=== PATIENT | female | born 1950 | race Caucasian/White ===

== ENCOUNTER 2017-04-05 13:38 | Emergency (ER) | payer MEDICARE, OTHER ==
[~2017-04-05] VITALS: Ht 154.9 cm; Wt 117.2 kg
[~2017-04-05 13:38] MED LIST: ACCUPRIL5 MG; ADVAIR DISK1 INH; ALLOPURINOL100 MG PO; B-122500 MCG PO; C 250 PO; CARAFATE1 GM PO; CARDIZEM30 MG PO; CIPROFLOXACN500 MG PO; CYMBALTA30 MG PO; D3400 UNI1 PO; EC ASPIRIN325 MG PO; EQL ASPIRIN325 MG PO; ERYTHROCIN PO; EYE GTT; FIORICET PO; FLEXERIL5 MG PO; FLONASE NASAL50 MCG; FOLIC ACID1 MG PO; GABAPENTIN100 MG PO; GABAPENTIN300 MG PO; HYZAAR1 TA2 OR; IMDUR30 MG OR; LANOXIN0.125 MG PO; LASIX 20 MG TAB20 MG PO; LASIX20 MG OR; LEVOTHYROXIN100 MCG PO; LEVOTHYROXIN75 MCG PO; LIPITOR20 MG OR; LIPITOR40 MG OR; LIPITOR40 MG PO; LOPRESSOR50 MG PO; LORTAB 10-325 M1 TAB PO; LORTAB 5 OR; LORTAB 5 PO; LORTAB 5/3255 MG PO; LORTAB 7.57.5 MG PO; LORTAB5 PO; METFORMIN500 M2 PO; METO50TA52 OR; METO50TA52 PO; METOCLOPRAM5 MG PO; METRONIDAZOL500 MG PO; NEURONTIN300 MG OR; NEXIUM20 M1 OR; NEXIUM40 M1 PO; NITROLINGUAL SPRAY D MT; PERCOCET 5/325M1 TAB OR; POOR HISTORIAN; PREVACID30 M2 PO; REQUIP0.5 MG PO; REQUIP3 MG PO; SPIRIVA IN; SUCRALFATE1 GM PO; TOPROL XL PO; TOPROL XL100 MG OR; TOPROL XL100 MG PO; TRAMADOL HCL50 MG PO; VENTOLIN HFA IN; VESICARE10 MG OR; VESICARE10 MG PO; XANAX0.25 MG OR; XANAX0.25 MG PO; ZOFRAN ODT4 MG OR; ZPAK OR
[2017-04-05 14:40] VITALS: BP 166/87
== END 2017-04-05 14:38 | disposition home or self-care (01) ==
LOC: ED 13:38
DX: R51 Headache (principal); J44.9 Chronic obstructive pulmonary disease, unspecified; K21.9 Gastro-esophageal reflux disease without esophagitis; I11.0 Hypertensive heart disease with heart failure; I50.9 Heart failure, unspecified; M19.90 Unspecified osteoarthritis, unspecified site; I25.10 Atherosclerotic heart disease of native coronary artery without angina pectoris; E03.9 Hypothyroidism, unspecified; I48.91 Unspecified atrial fibrillation; E11.42 Type 2 diabetes mellitus with diabetic polyneuropathy; E78.5 Hyperlipidemia, unspecified; E66.01 Morbid (severe) obesity due to excess calories; F32.9 Major depressive disorder, single episode, unspecified; Z95.0 Presence of cardiac pacemaker

== ENCOUNTER 2017-10-17 14:35 | Emergency (ER) | payer MEDICARE, OTHER ==
[~2017-10-17] VITALS: Ht 154.9 cm; Wt 113.2 kg
[2017-10-17 15:11] LABS: HEMATOCRIT 37.4 % (37.0-47.0); HEMOGLOBIN 11.1 g/dl (12.0-16.0); IMMATURE GRANULOCYTES 0.3 % (0.0-1.0); MEAN CORPUSCULAR HGB 21.7 pG CALC (26.0-32.0); MEAN CORPUSCULAR HGB CONC 29.7 g/L CALC (32.0-36.0); NEUT# 7.78 thou/uL (2.00-7.15); RED BLOOD COUNT 5.12 mill/uL (4.20-5.60); RED CELL DISTRI WIDTH 17.5 % (11.5-15.5)
[2017-10-17 15:24] LABS: ALBUMIN 4.2 g/dL (3.2-5.0); ALKALINE PHOSPHATASE 91 u/l (38-126); ANION GAP 16 (6-22 (CALC)); BILIRUBIN, TOTAL 0.5 mg/dL (0.0-1.4); BUN 10 mg/dL (8-23); BUN/CREATININE RATIO 11 (12-20 (CALC)); CALCIUM 9.4 mg/dL (8.4-10.2); CARBON DIOXIDE 23 mmol/l (22-30); CHLORIDE 105 mmol/l (95-108); CREATININE 0.9 mg/dL (0.5-1.0); GFR > 60 ML/MIN (>=60 (CALC)); GFR FOR AFR.AMER. > 60 ML/MIN (>=60 (CALC)); GLUCOSE 127 mg/dL (82-115); POTASSIUM 4.3 mmol/l (3.5-5.1); SGOT/AST 29 u/l (9-36); SGPT/ALT 29 u/l (11-66); SODIUM 139 mmol/l (137-146); TOTAL PROTEIN 7.6 g/dL (6.3-8.2)
[2017-10-17 15:26] LABS: PROTHROMBIN TIME 11.3 SECONDS (9.0-12.5)
[2017-10-17 15:35] LABS: MYOGLOBIN 55 ng/mL (0 - 62)
[2017-10-17] MEDS ORDERED: DOXYCYC MONO100 M1 PO (17:24)
[2017-10-17] MEDS ORDERED: ROBITUSSIN AC10 ML PO (17:24)
[2017-10-17 17:44] VITALS: BP 138/78
== END 2017-10-17 17:56 | disposition home or self-care (01) ==
LOC: ED 14:35
PROVIDERS: Emergency Medicine
DX: J44.0 Chronic obstructive pulmonary disease with (acute) lower respiratory infection (principal); J20.9 Acute bronchitis, unspecified; I10 Essential (primary) hypertension; F03.90 Unspecified dementia, unspecified severity, without behavioral disturbance, psychotic disturbance, mood disturbance, and anxiety; E66.01 Morbid (severe) obesity due to excess calories; M10.9 Gout, unspecified; Z95.0 Presence of cardiac pacemaker; R06.02 Shortness of breath

== ENCOUNTER 2017-12-18 19:45 | Emergency (ER) | payer MEDICARE, OTHER ==
[~2017-12-18] VITALS: Ht 154.9 cm; Wt 109.0 kg
[~2017-12-18 19:45] MED LIST changes: +DOXYCYC MONO100 M1 PO; +ROBITUSSIN AC10 ML PO
[2017-12-18 20:15] LABS: HEMATOCRIT 33.6 % (37.0-47.0); HEMOGLOBIN 9.9 g/dl (12.0-16.0); IMMATURE GRANULOCYTES 0.3 % (0.0-1.0); MEAN CELL VOLUME 74.7 fL CALC (80.0-100.0); MEAN CORPUSCULAR HGB CONC 29.5 g/L CALC (32.0-36.0); NEUT# 7.79 thou/uL (2.00-7.15); RED BLOOD COUNT 4.5 mill/uL (4.20-5.60)
[2017-12-18] MEDS ORDERED: CLOPIDOGREL75 MG PO (20:26)
[2017-12-18] MEDS ORDERED: ISOSORB MONO30 MG PO (20:26)
[2017-12-18] MEDS ORDERED: ASPIRIN81 MG PO (20:26)
[2017-12-18] MEDS ORDERED: ZOLOFT50 MG PO (20:27)
[2017-12-18] MEDS ORDERED: CLARITIN-D1 TA2 PO (20:27)
[2017-12-18] MEDS ORDERED: DEXILANT30 MG PO (20:27)
[2017-12-18 20:28] LABS: ALBUMIN 3.9 g/dL (3.2-5.0); ALKALINE PHOSPHATASE 85 u/l (38-126); ANION GAP 16 (6-22 (CALC)); BILIRUBIN, TOTAL 0.3 mg/dL (0.0-1.4); BUN 6 mg/dL (8-23); BUN/CREATININE RATIO 8 (12-20 (CALC)); CALCIUM 9.4 mg/dL (8.4-10.2); CARBON DIOXIDE 25 mmol/l (22-30); CHLORIDE 102 mmol/l (95-108); CREATININE 0.8 mg/dL (0.5-1.0); GFR > 60 ML/MIN (>=60 (CALC)); GFR FOR AFR.AMER. > 60 ML/MIN (>=60 (CALC)); GLUCOSE 108 mg/dL (82-115); LIPASE 41 u/l (23-300); POTASSIUM 3.2 mmol/l (3.5-5.1); SGOT/AST 24 u/l (9-36); SGPT/ALT 23 u/l (11-66); SODIUM 140 mmol/l (137-146); TOTAL PROTEIN 7.1 g/dL (6.3-8.2)
[2017-12-18] MEDS ORDERED: TRAMADOL HCL50 MG PO (20:28)
[2017-12-18] MEDS ORDERED: SYMBICORT 80-4.5MCG IN (20:29)
[2017-12-18] MEDS ORDERED: VENTOLIN H108 MCG/AC IN (20:30)
[2017-12-18] MEDS ORDERED: DICYCLOMINE10 MG PO (20:31)
[2017-12-18 23:29] VITALS: BP 110/82
[2017-12-18] MEDS ORDERED: MOTRIN400 MG PO (23:32)
== END 2017-12-18 23:42 | disposition home or self-care (01) ==
LOC: ED 19:45
PROVIDERS: Family Medicine
DX: R10.13 Epigastric pain (principal); R11.0 Nausea; K44.9 Diaphragmatic hernia without obstruction or gangrene; Z95.0 Presence of cardiac pacemaker
CPT/HCPCS: Q9967